=== PATIENT | male | born 1970 | race Caucasian/White ===

== ENCOUNTER 2022-06-07 15:33 | Inpatient (IN) | payer OTHER ==
[~2022-06-07] VITALS: Ht 188 cm; Wt 95.3 kg
[2022-06-07 15:35] VITALS: BP_SYST 100
--- NOTE | 2022-06-07 15:50 | NUR ---
Placed in room 6 . Placed on cardiac cath lab manager, blood pressure machine and pulse oximeter. To gown for exam. Side rails up. Report given to TY ALMAZAN.
--- NOTE | 2022-06-07 15:55 | NUR ---
ER DR. MARSHALL EXAMINING PT
[2022-06-07] MEDS ORDERED: DILTIAZEM HCL 60 MG TABLET PO ONE (17:00)
[2022-06-07] MEDS ORDERED: dilTIAZem HCL IVP 5 MG/ML VIAL IVP ONE (17:00)
[2022-06-07 17:15] LABS: BASOPHILS % (AUTO) 0.2 % (0.0-2.0); EOSINOPHILS # (AUTO) 0.1 K/uL (0.0-0.4); EOSINOPHILS % (AUTO) 0.7 % (0.0-4.0); HEMATOCRIT 42.3 % (36-54); HEMOGLOBIN 14.7 g/dL (14.0-18.0); LYMPHOCYTES # (AUTO) 1.1 K/uL (1.0-5.5); LYMPHOCYTES % (AUTO) 10.4 % (20.5-51.5); MEAN CORPUSCULAR HEMOGLOBIN 31 pg (27-31); MEAN CORPUSCULAR HGB CONC 35 % (32-36); MEAN CORPUSCULAR VOLUME 88 fL (79.0-98.0); MONOCYTES # (AUTO) 0.7 K/uL (0.0-1.0); MONOCYTES % (AUTO) 6.5 % (1.7-9.3); NEUTROPHILS # (AUTO) 8.4 K/uL (1.8-7.7); NEUTROPHILS % (AUTO) 82.2 % (40.0-70.0); PLATELET COUNT (AUTO) 177 K/uL (130-430); RED BLOOD CELL COUNT(AUTO) 4.79 MIL/uL (4.2-6.2); RED CELL DISTRIBUTION WIDTH 13.2 % (9.0-15.0); WHITE BLOOD COUNT (AUTO) 10.2 K/uL (4.8-10.8)
[2022-06-07 17:38] LABS: ANION GAP 11 (5-15); CALCIUM 9.8 mg/dL (8.4-11.0); CHLORIDE 101 mmol/L (98-107); CREATININE 1.52 mg/dL (0.55-1.30); GLUCOSE 91 mg/dL (70-99); POTASSIUM 3.3 mmol/L (3.5-5.1); SODIUM SERUM 139 mmol/L (136-145); UREA NITROGEN, BLOOD 22 mg/dL (8-21)
[2022-06-07 17:39] LABS: GFR AFRICAN AMERICAN 62 mL/min (>90)
[2022-06-07 17:56] LABS: ALANINE AMINOTRANSFERASE 33 U/L (12-78); ALBUMIN 4.4 g/dL (3.4-4.8); ASPARTATE AMINOTRANSFERASE 30 U/L (10-37); TOTAL BILIRUBIN 0.9 mg/dL (0.0-1.0)
--- NOTE | 2022-06-07 18:53 | NUR ---
WAdmit bed requested Patient will be admitted to care of Dr. MABRY. Admitted to TELE unit. Diagnosis AFIB WITH RVR Inpatient (Yes or No) YES Observation (Yes or No) NO Orientation concerns or request close to nursing station (Yes or No) NO Covid Status NEG On vent or bipap NO Isolation requirements NO Needs a sitter NO From Home (Yes or if No enter name of facility) YES Requires Dialysis (Yes or No) NO Med Rec Completed (Yes of No) YES
--- NOTE | 2022-06-07 19:10 | NUR ---
REPORT TO CLARKE CRAWFORD
--- NOTE | 2022-06-07 19:35 | NUR ---
Received pt up in bed, verbally responsive. No acute signs of distress. Breathing adequately on RA. VSS. Denies any pain/discomfort at this time.
[2022-06-07] MEDS: NACL 0.9% 1,000 ML IV SCH (20:37)
--- NOTE | 2022-06-07 20:54 | NUR ---
ADMISSION NOTE Received patient from ER via javier, received report from ARIEL/ TY. Patient admitted with diagnosis of NEW ONSE OF ATRIAL FIBRILLATION. Patient oriented to hospital routine, call light, toileting and safety-patient verbalized understanding.
--- NOTE | 2022-06-07 21:02 | NUR ---
Patient will be admitted to care of Dr. Gallegos. Admitted to Tele unit. Room 100A. Complete and up to date summary report printed. SBAR report given at bedside to receiving RN with opportunity for questions.
[2022-06-07 21:09] VITALS: BP_SYST 129
--- NOTE | 2022-06-07 21:33 | NUR ---
CONSULTATION PAGED/CALLED Reason for Consultation: NEW ONSET OF AFIB Person Who was Notified: LOUIE Consulting Physician: Batch Or Continuous Still Operator Specialty: LAWYER PROBATE Ordering Physician: DR. MABRY
--- NOTE | 2022-06-07 21:41 | NUR ---
Spoke with the leather staker Dr. Mancuso informed regarding consult, progress treatment in the ER with new order carried out.
[2022-06-07] MEDS ORDERED: AMIODARONE HCL 200 MG TABLET PO ONE (21:45)
[2022-06-07] MEDS ORDERED: HYDROcodone/ACETAMIN 7.5-325 MG TAB PO PRN (22:00)
[2022-06-07] MEDS ORDERED: ONDANSETRON HCL 4 MG/2 ML VIAL IVP PRN (22:00)
[2022-06-07] MEDS ORDERED: ZOLPIDEM TARTRATE 5 MG TABLET PO PRN (22:00)
[2022-06-07] MEDS ORDERED: ACETAMINOPHEN 500 MG TABLET PO PRN (22:00)
[2022-06-07] MEDS ORDERED: MORPHINE 2 MG/ML INJ. SYRINGE IVP PRN (22:00)
[2022-06-07] MEDS ORDERED: DOCUSATE SODIUM 100 MG/10 ML UDC PO PRN (22:00)
--- NOTE | 2022-06-07 22:03 | NUR ---
Amiodarone Scheduled med given. Reviewed side effects and he verbalized understanding.
--- NOTE | 2022-06-07 22:14 | NUR ---
CONSULTATION PAGED/CALLED Reason for Consultation: elevated BUN/ CREATINE Person Who was Notified: LOUIE Consulting Physician: DR. LOWE Dividend Deposit Entry Clerk Specialty: GENERAL DISTILLERY WORKER Ordering Physician: DR. MABRY
[2022-06-07] MEDS ORDERED: NACL 0.9% 1,000 ML IV ONE (22:15)
[2022-06-07 22:52] LABS: INR 1.1 (0.80-1.20)
[2022-06-07 23:53] LABS: PHOSPHORUS 2.8 mg/dL (2.7-4.5)
[2022-06-07 23:54] LABS: FREE T4 (FREE THYROXINE) 1.3 ng/dL (0.6-1.6); THYROID STIMULATING HORMONE 1.45 uIu/mL (0.34-4.82)
[2022-06-07 23:55] VITALS: BP_SYST 130
[2022-06-08 00:42] VITALS: BP_SYST 133
--- NOTE | 2022-06-08 00:42 | NUR ---
rounds, V/S, IVF Patient resting w/eyes closed and momentarily awakened for V/S which are stable. New order for IVF carried out. Patient informed MD is requesting bed rest and was provided with urinal (earlier he did not want urinal and said he preferred to walk to restroom).
[2022-06-08] MEDS: NACL 0.9% 1,000 ML IV SCH ×4 (02:55→21:48)
--- NOTE | 2022-06-08 03:05 | NUR ---
Wound Pictures, UA sample Patient requested-wants to ambulate to restroom for void; provided ua sample will take to lab. Laceration on posterior head was cleansed w/NS. Covered with foam dressing and secured w/ kirlex. Pictures taken. SCD's connected; reviewed indications and he he verbalized understanding. Call light w/in reach.
[2022-06-08 03:53] LABS: BILIRUBIN,URINE NEGATIVE (NEGATIVE); BLOOD, URINE NEGATIVE (NEGATIVE); CLARITY/URINE CLEAR (CLEAR); COLOR,URINE YELLOW (YELLOW); GLUCOSE,URINE NEGATIVE (NEGATIVE); KETONES,URINE NEGATIVE (NEGATIVE); LEUKOCYTE ESTERASE ,URINE NEGATIVE (NEGATIVE); NITRITE, URINE NEGATIVE (NEGATIVE); PROTEIN URINE NEGATIVE (NEGATIVE); UROBILINOGEN,URINE 0.2 (0.2-1.0)
[2022-06-08 04:13] LABS: BARBITURATE, URINE NEGATIVE (NEG <=200); BENZODIAZEPINE, URINE NEGATIVE (NEG <=150); CANNABINOID, URINE NEGATIVE (NEG <=50); COCAINE, URINE NEGATIVE (NEG <=150); METHAMPHETAMINES SCREEN,URINE NEGATIVE (NEG <=500); OPIATE, URINE NEGATIVE (NEG <=100); PHENCYCLIDINE SCREEN,URINE NEGATIVE (NEG <=25); UR TRICYCLIC ANTIDEPRESSANTS NEGATIVE (NEG <=300); URINE AMPHETAMINE NEGATIVE (NEG <=500); URINE METHADONE NEGATIVE (NEG <=200); URINE OXYCODONE SCREEN NEGATIVE (NEG <=100); URINE PROPOXYPHENE SCREEN NEGATIVE (NEG <=300)
[2022-06-08 05:15] VITALS: BP_SYST 143
--- NOTE | 2022-06-08 05:15 | NUR ---
rounds V/S taken and stable, denies pain. IVF infusing well.
[2022-06-08 06:54] LABS: BASOPHILS % (AUTO) 0.5 % (0.0-2.0); EOSINOPHILS # (AUTO) 0.2 K/uL (0.0-0.4); EOSINOPHILS % (AUTO) 2.7 % (0.0-4.0); HEMATOCRIT 36.8 % (36-54); HEMOGLOBIN 13.1 g/dL (14.0-18.0); LYMPHOCYTES # (AUTO) 1.6 K/uL (1.0-5.5); LYMPHOCYTES % (AUTO) 27.9 % (20.5-51.5); MEAN CORPUSCULAR HEMOGLOBIN 32 pg (27-31); MEAN CORPUSCULAR HGB CONC 36 % (32-36); MEAN CORPUSCULAR VOLUME 89 fL (79.0-98.0); MONOCYTES # (AUTO) 0.5 K/uL (0.0-1.0); MONOCYTES % (AUTO) 8.8 % (1.7-9.3); NEUTROPHILS # (AUTO) 3.5 K/uL (1.8-7.7); NEUTROPHILS % (AUTO) 60.1 % (40.0-70.0); PLATELET COUNT (AUTO) 156 K/uL (130-430); RED BLOOD CELL COUNT(AUTO) 4.16 MIL/uL (4.2-6.2); RED CELL DISTRIBUTION WIDTH 13.1 % (9.0-15.0); WHITE BLOOD COUNT (AUTO) 5.8 K/uL (4.8-10.8)
--- NOTE | 2022-06-08 07:00 | NUR ---
closing note Patient resting in comfortable position, no distress. IVF infusing well. Needs met throughout shift, will endorse care.
[2022-06-08 07:47] LABS: CALCIUM 8.7 mg/dL (8.4-11.0); CREATININE 1.13 mg/dL (0.55-1.30); POTASSIUM 3.7 mmol/L (3.5-5.1)
[2022-06-08 08:00] VITALS: BP_SYST 131
[2022-06-08] MEDS ORDERED: AMIODARONE HCL 200 MG TABLET PO ONE (08:30)
[2022-06-08] MEDS ORDERED: POTASSIUM CHLORIDE 20 MEQ TAB.PRT.SR PO PRN (09:00)
[2022-06-08] MEDS: PANTOPRAZOLE SODIUM 40 MG TAB PO SCH (09:36)
[2022-06-08] MEDS: APIXABAN 2.5 MG TABLET PO SCH ×2 (09:37→21:43)
[2022-06-08 12:00] VITALS: BP_SYST 131
[2022-06-08] MEDS: AMIODARONE HCL 200 MG TABLET PO SCH (15:49)
[2022-06-08 16:00] VITALS: BP_SYST 131
--- NOTE | 2022-06-08 19:50 | NUR ---
Opening note Received patient resting in bed, eyes closed. No distress and non labored breathing on room air. IV running as ordered. Bed is locked in lowest position, side rails up 2x, SCD's on. VSS and reports minimal discomfort "getting tired of being in bed". and he adds that he does not need any pain med.
[2022-06-08 20:00] VITALS: BP_SYST 121
--- NOTE | 2022-06-08 21:43 | NUR ---
Scheduled med Scheduled med, Eliquis given. Reviewed side effects and he verbalized understanding.
[2022-06-09] MEDS: AMIODARONE HCL 200 MG TABLET PO SCH ×3 (00:34→16:17)
--- NOTE | 2022-06-09 00:34 | NUR ---
V/S, med Patient resting w/eyes closed, momentarily awakened. Vital signs stable, denies pain. Amiodarone given as ordered. He does not use the urinal and reports that he prefers to walk to restroom. No further needs, wctm.
[2022-06-09 00:42] VITALS: BP_SYST 133
[2022-06-09] MEDS: NACL 0.9% 1,000 ML IV SCH (05:01)
--- NOTE | 2022-06-09 05:06 | NUR ---
IVF IV pump alarming, bag is empty and hung new bag. Infusing well, no sign of infiltration noted.
[2022-06-09 06:39] LABS: BASOPHILS % (AUTO) 0.4 % (0.0-2.0); EOSINOPHILS # (AUTO) 0.2 K/uL (0.0-0.4); EOSINOPHILS % (AUTO) 3.4 % (0.0-4.0); HEMOGLOBIN 12.6 g/dL (14.0-18.0); LYMPHOCYTES # (AUTO) 1.4 K/uL (1.0-5.5); LYMPHOCYTES % (AUTO) 28.4 % (20.5-51.5); MEAN CORPUSCULAR HEMOGLOBIN 32 pg (27-31); MEAN CORPUSCULAR HGB CONC 36 % (32-36); MEAN CORPUSCULAR VOLUME 88 fL (79.0-98.0); MONOCYTES # (AUTO) 0.3 K/uL (0.0-1.0); NEUTROPHILS # (AUTO) 2.9 K/uL (1.8-7.7); NEUTROPHILS % (AUTO) 61.8 % (40.0-70.0); PLATELET COUNT (AUTO) 144 K/uL (130-430); RED BLOOD CELL COUNT(AUTO) 3.96 MIL/uL (4.2-6.2); RED CELL DISTRIBUTION WIDTH 13.2 % (9.0-15.0); WHITE BLOOD COUNT (AUTO) 4.8 K/uL (4.8-10.8)
[2022-06-09 07:52] VITALS: BP_SYST 136
[2022-06-09] MEDS: APIXABAN 2.5 MG TABLET PO SCH ×2 (08:23→21:56)
[2022-06-09] MEDS: PANTOPRAZOLE SODIUM 40 MG TAB PO SCH (08:25)
[2022-06-09 08:39] LABS: CALCIUM 8.7 mg/dL (8.4-11.0); CREATININE 1.07 mg/dL (0.55-1.30); POTASSIUM 3.6 mmol/L (3.5-5.1)
[2022-06-09] MEDS ORDERED: APIX2.5T PO ×2 (10:20)
[2022-06-09] MEDS ORDERED: AMIO200T66 PO ×2 (10:28)
[2022-06-09] MEDS ORDERED: CARVEDILOL 6.25 MG TABLET (COREG) PO ONE (10:45)
[2022-06-09 12:00] VITALS: BP_SYST 143
--- NOTE | 2022-06-09 14:52 | NUR ---
0730 Pt. in bed, aaox4, no distress, vss, call light in reach 1200 Pt. to stay one more day due to Dr. Lockett started him on Coreg po and wants to to see if any adverse reactions may occur, pt. is aware, afib on monitor. 1400 Pt. resting quietly, vss, no distress
[2022-06-09 16:05] VITALS: BP_SYST 129
--- NOTE | 2022-06-09 18:28 | NUR ---
1800 PT. needs met this shift, vss, no distress, possible dc home tomorrow, afib on monitor.
[2022-06-09 20:00] VITALS: BP_SYST 140
[2022-06-09] MEDS ORDERED: CARVEDILOL 6.25 MG TABLET (COREG) PO SCH (21:00)
[2022-06-10] VITALS: BP_SYST 131
[2022-06-10] MEDS: AMIODARONE HCL 200 MG TABLET PO SCH (00:33)
[2022-06-10 06:51] LABS: CALCIUM 9.2 mg/dL (8.4-11.0); CREATININE 1.13 mg/dL (0.55-1.30); POTASSIUM 3.3 mmol/L (3.5-5.1)
[2022-06-10 08:00] VITALS: BP_SYST 152
--- NOTE | 2022-06-10 08:00 | NUR ---
opening assumed patient care in bed AAOX4. Plan of care discussed with patient. patient verbalized understanding
[2022-06-10] MEDS: PANTOPRAZOLE SODIUM 40 MG TAB PO SCH (09:18)
[2022-06-10] MEDS: APIXABAN 2.5 MG TABLET PO SCH (09:19)
[2022-06-10 09:32] LABS: BASOPHILS % (AUTO) 0.7 % (0.0-2.0); EOSINOPHILS # (AUTO) 0.2 K/uL (0.0-0.4); EOSINOPHILS % (AUTO) 3.9 % (0.0-4.0); HEMATOCRIT 37.2 % (36-54); HEMOGLOBIN 13.2 g/dL (14.0-18.0); LYMPHOCYTES # (AUTO) 1.5 K/uL (1.0-5.5); LYMPHOCYTES % (AUTO) 25.9 % (20.5-51.5); MEAN CORPUSCULAR HEMOGLOBIN 31 pg (27-31); MEAN CORPUSCULAR HGB CONC 36 % (32-36); MEAN CORPUSCULAR VOLUME 89 fL (79.0-98.0); MONOCYTES # (AUTO) 0.3 K/uL (0.0-1.0); MONOCYTES % (AUTO) 5.7 % (1.7-9.3); NEUTROPHILS # (AUTO) 3.6 K/uL (1.8-7.7); NEUTROPHILS % (AUTO) 63.8 % (40.0-70.0); PLATELET COUNT (AUTO) 155 K/uL (130-430); RED CELL DISTRIBUTION WIDTH 13.1 % (9.0-15.0); WHITE BLOOD COUNT (AUTO) 5.7 K/uL (4.8-10.8)
[2022-06-10] MEDS ORDERED: CARVEDILOL 6.25 MG TABLET (COREG) PO ONE (09:45)
[2022-06-10] MEDS ORDERED: AMIO200T66 PO (10:05)
[2022-06-10] MEDS ORDERED: APIX5TAB4 PO (10:06)
[2022-06-10] MEDS ORDERED: COR12.5 PO (10:07)
[2022-06-10 10:44] VITALS: BP_SYST 152
[2022-06-10 12:00] VITALS: BP_SYST 138
--- NOTE | 2022-06-10 14:50 | NUR ---
DISCHARGE PLANNING Received call from [facility], ph [phone] ext [phone], updated order to dc home today.
--- NOTE | 2022-06-10 14:52 | NUR ---
ROUNDS LATE ENTRY DUE TO PATIENT CARE 07:30- ASSUMED PATIENT CARE. PATIENT IS AWAKE ALERT AND ORIENTED X4. PLAN OF CARE DISCUSSED WITH PATIENT. PATIENT VRBALIZED UNDERSTANDING. 09:00- SB DR OSORIO. DISCHARGE ORDERS RECIEVED. FACILITATED DISCHARGE PAPER WORKS. PATIENT LIVES IN [place] IS VISITING FRIENDS FOR LABOR DAY WEEKEND. HIS FRIENDS ARE AT WORK RIGHT NOW AND HE HAS NO PLACE TO BE DISCHARGE.
--- NOTE | 2022-06-10 18:28 | NUR ---
D/C Patient Patient given medication reconciliation form and D/C instructions. Exit Care provided. Patient verbalized understanding. MD discussed with patient the results and treatment provided. Ambulatory with steady gait for discharge to home. Patient in stable condition, ID band removed. IV catheter removed, intact and dressing applied, no active bleeding. Rx given. Patient educated on pain management. All belongings sent with patient.
[2022-06-10] MEDS ORDERED: AMIODARONE HCL 200 MG TABLET PO SCH (21:00)
[2022-06-10] MEDS ORDERED: CARVEDILOL 6.25 MG TABLET (COREG) PO SCH (21:00)
== END 2022-06-10 18:28 | disposition home or self-care (01) | DRG 308 ==
LOC: SED 15:33 → STU 17:58
PROVIDERS: ADMIT Family Medicine; ATTEND Family Medicine
DX: I48.91 Unspecified atrial fibrillation (principal); G93.41 Metabolic encephalopathy; N17.0 Acute kidney failure with tubular necrosis; E87.6 Hypokalemia; E86.0 Dehydration; I49.9 Cardiac arrhythmia, unspecified; Z20.822 Contact with and (suspected) exposure to COVID-19; Z85.038 Personal history of other malignant neoplasm of large intestine; Z90.49 Acquired absence of other specified parts of digestive tract; Z79.01 Long term (current) use of anticoagulants
CPT/HCPCS: 36415; 70450-TC; 71045; 76376; 80048; 80053; 80061; 80307; 81003; 82150; 82550; 83036; 83605; 83690; 83735; 83880; 84100; 84439; 84443; 84484; 85025; 85610-TC; 85730-TC; 93005; 93306; 96374; 99285; G0378; J3490